=== PATIENT | male | born 1975 | race Caucasian/White ===

== ENCOUNTER 2016-11-14 19:37 | Emergency (ER) | payer SELFPAY ==
[~2016-11-14] VITALS: Ht 170.2 cm; Wt 77.3 kg
[2016-11-14 22:00] VITALS: BP 121/81
== END 2016-11-14 22:27 | disposition home or self-care (01) ==
LOC: EMS 19:39
DX: R51 Headache (principal)
CPT/HCPCS: 70450; 99284